=== PATIENT | female | born 1985 | race Caucasian/White ===

== ENCOUNTER 2020-05-15 06:02 | Day surgery (SDC) | payer OTHER ==
[~2020-05-15] VITALS: Ht 177.8 cm; Wt 82.7 kg
[~2020-05-15 06:02] MED LIST: Ativan0.5 MG PO; Camila0.35 MG; ERGO400 PO; ESCI10 PO; IBUP200 PO; IBUP800 PO; MULVITA PO; MULVITMINE; OMEP20ER PO; PANT40 PO; SUMA25 PO
--- NOTE | 2020-05-15 06:41 | NUR ---
Ambulatory in Day Surgery. Surgical site prepped with 2% Chlorhexidine cloth wipe. [employer] Paws warming gown applied. History, Chart, Medications and Allergies reviewed before start of procedure.Lungs clear T/O to Auscultation. Patient confirms NPO status and agrees with scheduled surgery. Pre-Op teaching done. Pt verbalizes understanding. Patient States Post-Procedure ride home has been arranged. Patient reports completing Chlorhexadine shower X2 prior to admission to hospital.
--- NOTE | 2020-05-15 11:16 | NUR ---
PT UP TO AMBULATE WITH STEADY GAIT. AMBULATED TO RESTROOM AND BACK. POSITIVE VOID.
--- NOTE | 2020-05-15 11:33 | NUR ---
Patient up to Ambulate independently. Gait steady. Discharge instructions reviewed with patient. Patient verbalizes understanding. Copy given to patient to take home. Discharged via wheelchair to private car for ride home.
== END 2020-05-15 23:07 | disposition home or self-care (01) ==
LOC: ORSCMMR 06:02 → ORD 07:30 → ORSCMMR 07:30
PROVIDERS: Surgery
PROC: 0WUF0JZ Supplement Abdominal Wall with Synthetic Substitute, Open Approach (ICD-10-PCS; principal; 2020-05-15 07:30)
DX: K43.6 Other and unspecified ventral hernia with obstruction, without gangrene (principal); I10 Essential (primary) hypertension; K21.9 Gastro-esophageal reflux disease without esophagitis; Z79.899 Other long term (current) drug therapy
CPT/HCPCS: A9270-GY; C1781; J0461; J0690; J1100; J1885; J2250; J2405; J2704; J2710; J2765; J3010; J7120